=== PATIENT | male | born 1980 ===

== ENCOUNTER 2020-05-08 12:22 | Outpatient (REF) | payer SELFPAY ==
[2020-05-08 13:19] LABS: SARS COV2 IgG Negative (Negative)
[2020-05-08 13:32] LABS: Cholesterol 153 mg/dL
== END 2020-05-08 12:23 | disposition home or self-care (01) ==
LOC: HO.LNC 12:22
PROVIDERS: Visit Provider Pathology Anatomic Pathology & Clinical Pathology
DX: Z13.89 Encounter for screening for other disorder (principal)
CPT/HCPCS: 82465; 86769